=== PATIENT | female | born 1985 | race Hispanic/Latino ===

== ENCOUNTER 2023-11-15 14:38 | Emergency (ER) | payer OTHER, BC ==
[~2023-11-15] VITALS: Ht 167.6 cm; Wt 65.8 kg
[2023-11-15] MEDS ORDERED: IBUPROFEN 600 MG TABLET PO ONE (17:00)
[2023-11-15 17:15] VITALS: BP 133/70; PULSE 72; RESP 18; O2SAT 99
== END 2023-11-15 18:22 | disposition home or self-care (01) ==
LOC: EDH 14:38
DX: M54.2 Cervicalgia (principal); V89.2XXA Person injured in unspecified motor-vehicle accident, traffic, initial encounter; Y93.89 Activity, other specified; Y92.89 Other specified places as the place of occurrence of the external cause; Y99.8 Other external cause status
CPT/HCPCS: 72125